=== PATIENT | female | born 1995 | race American Indian/Alaskan Native ===

== ENCOUNTER 2020-08-14 15:18 | Emergency (ER) | payer OTHER ==
[~2020-08-14] VITALS: Ht 165.1 cm; Wt 55.5 kg
[2020-08-14 15:26] VITALS: TEMP 97.9
[2020-08-14] MEDS ORDERED: SYNTHROID 0.0.025 MG PO (15:39)
[2020-08-14 15:45] VITALS: BP 139/82; PULSE 67
== END 2020-08-14 15:47 | disposition home or self-care (01) ==
LOC: COL.ER 15:18
DX: Z76.0 Encounter for issue of repeat prescription (principal); E06.3 Autoimmune thyroiditis; Z88.6 Allergy status to analgesic agent